=== PATIENT | female | born 1995 | race Caucasian/White ===

== ENCOUNTER 2022-07-16 08:11 | Day surgery (SDC) | payer MEDICAID ==
[~2022-07-16] VITALS: Ht 160 cm; Wt 51.5 kg
[~2022-07-16 08:11] MED LIST: NO HOME MEDS; famotidine 20mg tablet PO ONE; ringers solution, lacted 1,000 ML IV SCH
[2022-07-16 10:15] VITALS: BP 101/68
[2022-07-16 10:36] LABS: BASOPHILS # (AUTO) 0.1 X10'3 (0-0.2); BASOPHILS % (AUTO) 0.8 % (0-1); EOSINOPHILS # (AUTO) 0.2 X10'3 (0-0.9); EOSINOPHILS % (AUTO) 3.4 % (0-6); LYMPHOCYTES # (AUTO) 1.6 X10'3 (1.1-4.8); LYMPHOCYTES % (AUTO) 21.9 % (21-51); MEAN CORPUSCULAR HEMOGLOBIN 30.8 PG (27.0-31.0); MEAN CORPUSCULAR HGB CONC 33.4 g/dL (33.0-36.5); MEAN CORPUSCULAR VOLUME 92.2 FL (78-98); MEAN PLATELET VOLUME 7.3 FL (7.4-10.4); MONOCYTES # (AUTO) 0.6 X10'3 (0-0.9); MONOCYTES % (AUTO) 9.1 % (2-12); NEUTROPHILS # (AUTO) 4.6 X10'3 (1.8-7.7); NEUTROPHILS % (AUTO) 64.8 % (42-75); PRE OP PLATELET COUNT 251 X10'3 (140-440); RED BLOOD COUNT 4.23 X10'6 (4.20-5.60); RED CELL DISTRIBUTION WIDTH 12.9 % (11.5-14.5)
[2022-07-16] MEDS ORDERED: LIDOcaine 0.5% (5mg/ml) 50ml vial ONE ×2 (10:45→12:32)
[2022-07-16] MEDS ORDERED: BUPIVAcaine/PF 2.5 mg/ml (0.25%) 30ml vial ONE ×2 (10:45→11:19)
[2022-07-16 10:51] LABS: ALBUMIN 3.4 G/DL (3.4-5.0); ALKALINE PHOSPHATASE 68 IU/L (46-116); BLOOD UREA NITROGEN 22 MG/DL (7-18); BUN/CREATININE RATIO 31.9 (10.0-20.0); CALCIUM 8.7 MG/DL (8.5-10.1); CHLORIDE 106 MMOL/L (99-107); CREATININE 0.69 MG/DL (0.40-0.90); PRE OP ALT 22 U/L (30-65); PRE OP ANION GAP 6 (8-16); PRE OP AST 18 U/L (10-37); PRE OP BILIRUB, TOTAL 0.3 MG/DL (0.0-1.0); PRE OP GLUCOSE 93 MG/DL (70-104); PRE OP POTASSIUM 4.1 MMOL/L (3.4-5.1); PRE OP SODIUM 137 MMOL/L (135-145); TOTAL CARBON DIOXIDE 24.7 MMOL/L (24-32); TOTAL PROTEIN 6.9 G/DL (6.4-8.2); eGFR > 90 ML/MIN
[2022-07-16 10:57] LABS: PREOP HCG, QL SERUM NEGATIVE (NEGATIVE)
[2022-07-16] MEDS ORDERED: ceFAZolin/D5W- 1GM premix 50 ML IV ONE (11:10)
[2022-07-16] MEDS ORDERED: cefazolin 2gm/D5W 100mL 100 ML IV ONE (11:12)
[2022-07-16] MEDS ORDERED: fentaNYL/PF 50MCG/1 ML 2ML syringe ONE (11:31)
[2022-07-16] MEDS ORDERED: midazolam 1 mg/ML 2ml injection ONE (11:32)
[2022-07-16] MEDS ORDERED: BUPIVAcaine/PF 2.5 mg/ml (0.25%) 30ml vial IJ ONE (12:03)
[2022-07-16] MEDS ORDERED: meperidine/PF 25mg/ml syringe IV PRN ×3 (12:30)
[2022-07-16] MEDS ORDERED: ringers solution, lacted 1,000 ML IV SCH (12:30)
[2022-07-16] MEDS ORDERED: morphine 2 MG/ML inj. syringe IV PRN (12:30)
[2022-07-16] MEDS ORDERED: morphine 4 MG/ML inj SYRINge IV PRN (12:30)
[2022-07-16] MEDS ORDERED: proCHLORperazine 10 MG/2 ml inj IV PRN (12:30)
[2022-07-16] MEDS ORDERED: ondansetron/PF 4mg/2ml inj IV PRN (12:30)
[2022-07-16] MEDS ORDERED: propofol inj 20 ML IV ONE (12:32)
[2022-07-16 12:41] VITALS: BP 100/73
--- NOTE | 2022-07-16 12:41 | NUR ---
Received from OR via [facility], accompanied by Anesthesiologist and report given by [facility]IKE Anesthesiologist. PATIENT WAKING UP, NO S/S OF PAIN, V/S WNL, SCD ON, PIV 20G TO LEFT HAND, RIGHT WRIST DRESSING CDI. ICE AND ELEVATED RUE. Addendum: 07/16/22 at 1253 by Morgan Thornton RN Amended: Links added.
[2022-07-16 12:50] VITALS: BP 107/77
[2022-07-16 13:00] VITALS: BP 112/82
[2022-07-16 13:10] VITALS: BP 108/81
[2022-07-16 13:20] VITALS: BP 109/76
--- NOTE | 2022-07-16 13:31 | NUR ---
ALL DISCHARGE CRITERIA HAS BEEN MET. VSS, PAIN AT A TOLERABLE LEVEL, ABLE TO SAFELY AMBULATE AND TRANSFER SELF. IV TAKEN OUT WITHOUT ANY COMPLICATIONS. ALL DISCHARGE INSTRUCTIONS COVERED WITH PATIENT AND ALL QUESTIONS ANSWERED. PATIENT TAKEN OUT VIA WHEELCHAIR WITH ALL BELONGINGS TO PERSONAL VEHICLE WHERE FRIEND DROVE PATIENT HOME. Addendum: 07/16/22 at 1334 by Morgan Thornton RN Amended: Links added.
== END 2022-07-16 13:31 | disposition home or self-care (01) ==
LOC: PAS 08:11
PROVIDERS: ATTEND Orthopaedic Surgery Hand Surgery
DX: S66.120A Laceration of flexor muscle, fascia and tendon of right index finger at wrist and hand level, initial encounter (principal); J45.909 Unspecified asthma, uncomplicated; Z87.891 Personal history of nicotine dependence; Z98.890 Other specified postprocedural states; Z79.899 Other long term (current) drug therapy; W45.8XXA Other foreign body or object entering through skin, initial encounter; Y93.89 Activity, other specified; Y92.89 Other specified places as the place of occurrence of the external cause; Y99.8 Other external cause status
CPT/HCPCS: 26350; 26356; 36415; 80053; 82948; 84703; 85025; J2250; J2704; J3010; J3490; J7030; J7120; Z7506; Z7508; Z7512; A4215; A4618; A7000